=== PATIENT | male | born 1970 | race Caucasian/White ===

== ENCOUNTER 2018-09-09 12:39 | Observation (INO) | payer BC ==
[~2018-09-09] VITALS: Ht 182.9 cm; Wt 109.7 kg
--- NOTE | 2018-09-09 13:15 | NUR ---
Pt presents for intermittent CP x several weeks. Seen by urologist today who sent pt here. Pt states CP is mild at this time 08/17 and had been up to 12/17 with sweats and SOB. Pt NSR on monitor, NAD at this time.
[2018-09-09] MEDS ORDERED: ASPIRIN 81 MG TABLET CHEW ONE (13:20)
[2018-09-09] MEDS ORDERED: SODIUM CHLORIDE FLUSH 10ML SYR IVF ONE (13:30)
[2018-09-09] MEDS ORDERED: ASPIRIN 81 MG TABLET CHEW PO ONE (13:30)
[2018-09-09 13:48] LABS: BASOPHILS # (AUTO) 0.03 x10^3/uL (0-0.1); BASOPHILS % (AUTO) 0 % (0-1); EOSINOPHILS % (AUTO) 1 % (1-7); LYMPHOCYTES # (AUTO) 1.81 x10^3/uL (1-3.4); LYMPHOCYTES % (AUTO) 23 % (22-44); MD NO; MEAN CORPUSCULAR HEMOGLOBIN 32.2 pg (27.5-34.5); MEAN CORPUSCULAR HGB CONC 34.3 g/dL (33.2-36.2); MEAN CORPUSCULAR VOLUME 93.9 fL (81-97); MEAN PLATELET VOLUME 8.8 fL (7.4-10.4); MONOCYTES % (AUTO) 12 % (2-9); NEUTROPHILS # (AUTO) 4.96 x10^3/uL (1.8-6.8); NEUTROPHILS % (AUTO) 64 % (42-75); PLATELET COUNT 258 x10^3/uL (130-400); RED BLOOD COUNT 4.52 x10^6/uL (4.38-5.82); RED CELL DISTRIBUTION WIDTH 13.1 % (9.4-14.8)
[2018-09-09 13:56] LABS: ALBUMIN 3.7 g/dL (3.4-5.0); ANION GAP 8 mmol/L (5-15); CALCIUM 8.5 mg/dL (8.5-10.1); CHLORIDE 108 mmol/L (98-107)
[2018-09-09 14:01] LABS: ALANINE AMINOTRANSFERASE 41 U/L (12-78); ALKALINE PHOSPHATASE 85 U/L (45-117); BILIRUBIN,TOTAL 0.5 mg/dL (0.2-1.0); CREATININE 0.96 mg/dL (0.7-1.3); TOTAL PROTEIN 6.9 g/dL (6.4-8.2)
[2018-09-09 14:02] LABS: TROPONIN I < 0.015 ng/mL (0.000-0.045)
[2018-09-09] MEDS ORDERED: SODIUM CHLORIDE FLUSH 10ML SYR IVF PRN (15:00)
[2018-09-09] MEDS ORDERED: LEVO25TA2 PO (15:12)
[2018-09-09 16:13] VITALS: BP 124/81
[2018-09-09] MEDS ORDERED: BACLOFEN 10 MG TABLET PO PRN (17:00)
[2018-09-09] MEDS ORDERED: DOCUSATE 100 MG CAPSULE PO PRN (17:00)
[2018-09-09] MEDS ORDERED: LABETALOL 5 MG/ML SYRINGE IVPush PRN (17:00)
[2018-09-09] MEDS ORDERED: BISACODYL 10 MG SUPP PR PRN (17:00)
[2018-09-09] MEDS ORDERED: POLYETHYLENE GLYCOL 17 GM PACKET PO PRN (17:00)
[2018-09-09] MEDS ORDERED: hydrALAzine 20 MG/ML, 1ML IVPush PRN (17:00)
[2018-09-09] MEDS ORDERED: [UNRECOGNIZED DRUG - OTHER] PO (17:16)
[2018-09-09 17:25] LABS: D-DIMER 0.4 ug/mlFEU (0.00-0.52); INTERNATIONAL NORMALIZED RATIO 0.93 (0.93-1.1); PROTHROMBIN TIME 9.8 Seconds (9.6-11.5)
[2018-09-09 17:29] LABS: FREE T4 (FREE THYROXINE) 0.89 ng/dL (0.76-1.46); TROPONIN I < 0.015 ng/mL (0.000-0.045)
[2018-09-09 17:31] LABS: HEMOGLOBIN A1C 5.6 % (4.2-6.3)
[2018-09-09 17:34] LABS: THYROID STIMULATING HORMONE 0.201 mIU/L (0.358-3.740)
[2018-09-09 19:59] VITALS: BP 115/74
[2018-09-09 20:00] VITALS: BP_SYST 124; BP_SYST 125; BP_DIAS 78; BP_DIAS 83
[2018-09-09 20:09] LABS: AMPHETAMINE SCREEN, URINE Negative (Negative); BARBITURATE SCREEN, URINE Negative (Negative); BENZODIAZEPINE SCREEN, URINE Negative (Negative); CANNABINOID SCREEN, URINE Positive (Negative); COCAINE SCREEN, URINE Negative (Negative); METHADONE SCREEN, URINE Negative (Negative); OPIATE SCREEN, URINE Negative (Negative)
[2018-09-09 23:38] LABS: TROPONIN I < 0.015 ng/mL (0.000-0.045)
[2018-09-10 03:39] VITALS: BP 112/74
[2018-09-10 03:40] VITALS: BP_SYST 115; BP_SYST 122; BP_DIAS 84
[2018-09-10 05:05] LABS: BASOPHILS # (AUTO) 0.17 x10^3/uL (0-0.1); BASOPHILS % (AUTO) 2 % (0-1); EOSINOPHILS # (AUTO) 0.11 x10^3/uL (0-0.4); EOSINOPHILS % (AUTO) 1 % (1-7); LYMPHOCYTES # (AUTO) 1.96 x10^3/uL (1-3.4); LYMPHOCYTES % (AUTO) 25 % (22-44); MD NO; MEAN CORPUSCULAR HEMOGLOBIN 31.5 pg (27.5-34.5); MEAN CORPUSCULAR HGB CONC 33.4 g/dL (33.2-36.2); MEAN CORPUSCULAR VOLUME 94.5 fL (81-97); MEAN PLATELET VOLUME 8.9 fL (7.4-10.4); MONOCYTES # (AUTO) 0.81 x10^3/uL (0.2-0.8); MONOCYTES % (AUTO) 10 % (2-9); NEUTROPHILS # (AUTO) 4.78 x10^3/uL (1.8-6.8); NEUTROPHILS % (AUTO) 61 % (42-75); PLATELET COUNT 225 x10^3/uL (130-400); RED BLOOD COUNT 4.63 x10^6/uL (4.38-5.82); RED CELL DISTRIBUTION WIDTH 13.1 % (9.4-14.8)
[2018-09-10 05:13] LABS: CHLORIDE 109 mmol/L (98-107)
[2018-09-10 05:23] LABS: ALANINE AMINOTRANSFERASE 37 U/L (12-78); ALBUMIN 3.6 g/dL (3.4-5.0); ALKALINE PHOSPHATASE 75 U/L (45-117); ANION GAP 6 mmol/L (5-15); BILIRUBIN,TOTAL 0.9 mg/dL (0.2-1.0); CALCIUM 8.7 mg/dL (8.5-10.1); CHOL/HDL RATIO 3.6; CHOLESTEROL, TOTAL 161 mg/dL (140-239); CREATININE 0.86 mg/dL (0.7-1.3); HDL CHOL % 28 % (26-37); HDL CHOLESTEROL (DIRECT) 45 mg/dL (40-60); LDL CHOLESTEROL,CALCULATED 96 mg/dL (54-169); LDL/HDL RATIO 2.1 (0.5-3.0); TOTAL PROTEIN 6.5 g/dL (6.4-8.2); TRIGLYCERIDES 100 mg/dL (50-200); VLDL CHOLESTEROL 20 mg/dL (0-25)
[2018-09-10] MEDS ORDERED: THYROID 30 MG TABLET PO SCH (06:00)
[2018-09-10 06:33] VITALS: BP 111/73
[2018-09-10] MEDS: morphine SULFATE 10 MG/ML, 1ML IVPush PRN ×2 (07:54→11:12)
[2018-09-10] MEDS ORDERED: morphine SULFATE 10 MG/ML, 1ML IVPush ONE (11:15)
[2018-09-10] MEDS ORDERED: MORPHINE SULFATE 4 MG/ML, 1ML ONE (11:19)
[2018-09-10] MEDS ORDERED: NITROGLYCERIN SINGLE TAB 0.4 MG SL ONE (11:30)
[2018-09-10 13:50] VITALS: BP 121/78
[2018-09-10] MEDS ORDERED: GABAPENTIN 100 MG CAPSULE PO PRN (14:30)
[2018-09-10] MEDS ORDERED: GABA-826 PO (18:09)
== END 2018-09-10 19:03 | disposition home or self-care (01) ==
LOC: ED 13:21 → EDIP 14:43 → OBSVTOIN 14:43 → INTOOBSV 14:43 → 5SO 16:13
PROVIDERS: ADMIT Hospitalist; ATTEND Hospitalist
DX: R07.9 Chest pain, unspecified (principal); E03.9 Hypothyroidism, unspecified; M79.89 Other specified soft tissue disorders; R03.0 Elevated blood-pressure reading, without diagnosis of hypertension; R06.09 Other forms of dyspnea; R55 Syncope and collapse; Z90.49 Acquired absence of other specified parts of digestive tract; Z87.442 Personal history of urinary calculi; Z88.8 Allergy status to other drugs, medicaments and biological substances
CPT/HCPCS: 36415; 70450; 71045; 78452; 80053; 80061; 80307; 83036; 83690; 83735; 84100; 84439; 84443; 84484; 85025; 85379; 85610; 93005; 93017; 93306; 93970; 96374; 96376; 99285; A9502; C9898; G0378; J2270